=== PATIENT | male | born 1955 | race Caucasian/White ===

== ENCOUNTER 2018-07-27 09:17 | Day surgery (SDC) | payer OTHER ==
[~2018-07-27] VITALS: Ht 180.3 cm; Wt 135.7 kg
[2018-07-27 10:54] VITALS: Ht 180.3 cm; Wt 135.7 kg
[2018-07-27] MEDS ORDERED: OMEPRAZOLE (10:59)
[2018-07-27] MEDS ORDERED: DOXAZOSIN (10:59)
[2018-07-27] MEDS ORDERED: WELLBUTRIN (10:59)
--- NOTE | 2018-07-27 11:09 | PREAC ---
Date/Time of Note Date/Time of Note DATE: 07/27/18 TIME: 11:07 Anesthesia Eval and Record Evaluation Time Pre-Procedure Interview DATE: 07/27/18 TIME: 11:07 Age 62 Sex male NPO: 8 hrs Preoperative diagnosis DIARRHEA, BLOATING Planned procedure COLONOSCOPY Past Medical History Past Medical History: Includes Cardio: HTN (CURRENTLY OFF HTN MEDS) Pulm: Sleep Apnea, Home CPAP, Asthma (TRIGERRED BY [facility].) GI: Obesity Surgery & Anesthesia Issues No known issue Meds Anticoagulation: No Beta Eliseo within 24 hr: No Reason Beta Eliseo not given: Pt. not on B-Eliseo Reported Medications [Wellbutrin] No Conflict Check 07/27/18 [Doxazosin] No Conflict Check 07/27/18 [Omeprazole] No Conflict Check 07/27/18 Meds reviewed: Yes Allergies Coded Allergies: No Known Allergy (Unverified , 07/27/18) Allergies Reviewed: Yes Labs/Studies Labs Reviewed: Other (NONE) test: N/A Studies: ECG (EKG STRIP NSR) Pre-procedure Exam Airway: Adequate mouth opening, Adequate thyromental dist Mallampati: Mallampati II Teeth: Normal Lung: Normal Heart: Normal ASA Physical Status ASA physical status: 2 Emergency: None Planned Anesthetic General/MAC: MAC Planned Pain Management Parenteral pain med, Local by surgeon Pre-operative Attestations Prior to commencing anesthesia and surgery, the patient was re-evaluated, there was verification of: *The patient's identity *The results of appropriate recent lab work and preoperative vital signs *The above evaluation not changing prior to induction *Anesthetic plan, risk benefits, alternative and complications discussed with p atient/family; questions answered; patient/family understands, accepts and wishes to proceed. FLACO CASH Jul 27, 2018 11:09
[2018-07-27] MEDS ORDERED: PROPOFOL 40 ML ONE (11:11)
[2018-07-27 11:26] VITALS: BP 118/64; PULSE 69; RESP 16
[2018-07-27] MEDS ORDERED: LABETALOL HCL 20MG INJ IV PRN (11:30)
[2018-07-27] MEDS ORDERED: ONDANSETRON 4 MG INJ IV PRN (11:30)
[2018-07-27] MEDS ORDERED: ALBUTEROL 0.083% (NEB) 2.5 MG/3 ML AMP HHN PRN (11:30)
[2018-07-27] MEDS ORDERED: OXYCODONE/ACETAMINOPHEN (5/325) TAB PO PRN ×2 (11:30)
--- NOTE | 2018-07-27 14:18 | PAC ---
Date/Time of Note Date/Time of Note DATE: 07/27/18 TIME: 14:17 Post-Anesthesia Notes Post-Anesthesia Note Last documented vital signs bp 126/68 hr 68 temp 97.8 spo2 97% rr Vital Signs Date Temp Pulse Resp B/P (MAP) Pulse Ox O2 O2 Flow FiO2 Time Delivery Rate 07/27/18 98.3 69 16 118/64 97 Room Air 11:26 (82) Activity: WNL Respiratory function: WNL Cardiovascular function: WNL Mental status: Baseline Pain reasonably controlled: Yes Hydration appropriate: Yes Nausea/Vomiting absent: Yes FLACO CASH Jul 27, 2018 14:18
== END 2018-07-27 12:57 | disposition home or self-care (01) ==
LOC: GIL 09:17
PROVIDERS: ATTEND Internal Medicine Gastroenterology
DX: Z12.11 Encounter for screening for malignant neoplasm of colon (principal); K64.8 Other hemorrhoids; I10 Essential (primary) hypertension; J45.909 Unspecified asthma, uncomplicated; G47.30 Sleep apnea, unspecified
CPT/HCPCS: 45378; Z7610